=== PATIENT | male | born 1970 | race Caucasian/White ===

== ENCOUNTER 2021-09-12 12:08 | Emergency (ER) | payer BC, OTHER, SELFPAY ==
--- NOTE | ~2021-09-12 | XR_ITS ---
XR hand RT min 3V DATE: 09/12/2021 13:03 INDICATION: Dog bite 4 days ago. Right thumb pain. TECHNIQUE: 3 views COMPARISON: None FINDINGS: No fracture, dislocation, periosteal reaction or bone destruction, radiopaque foreign body or subcutaneous emphysema is noted. Joint spaces are preserved. No erosive change. IMPRESSION: No significant abnormality Reviewed, dictated and finalized at location A. IMPRESSION: No significant abnormality
[2021-09-12 12:10] VITALS: BP 118/67; PULSE 105; RESP 17; TEMP 36.7; O2SAT 99
--- NOTE | 2021-09-12 12:55 | ED.GENADULT ---
HPI - General Adult General Chief complaint: Unspecified Stated complaint: feeling rough Time Seen by Provider: 09/12/21 12:23 History of Present Illness HPI narrative: 51 year old male patient presents to the ER for evaluation of a dogbite to the right thumb. Patient states he was bitten approx. 3 days ago by a known dog who is UTD with its vaccines. States he woke this am with generalized body aches. States thumb is more painful and swollen. Denies any purulent drainage from the wound site. Related Data Allergies Allergy/AdvReac Type Severity Reaction Status Date / Time Penicillins Allergy Anaphylaxis Verified 09/12/21 12:13 sulfamethoxazole Allergy Hives Verified 09/12/21 12:13 [From Bactrim] trimethoprim [From Bactrim] Allergy Hives Verified 09/12/21 12:13 Review of Systems Review of Systems: CONSTITUTIONAL: Reports body aches EYES: Denies visual changes, redness, or discharge. ENT: Denies rhinorrhea, congestion, sore throat, or otalgia. CARDIOVASCULAR: Denies chest pain, palpitations, or edema. RESPIRATORY: Denies cough or dyspnea. GASTROINTESTINAL: Denies abdominal pain, nausea, vomiting, or diarrhea. GENITOURINARY: Denies dysuria or hematuria. SKIN: Reports pain to the right thumb MUSCULOSKELETAL: Denies back pain, joint pain, or myalgia. NEUROLOGIC: Denies headache, numbness, dizziness, or weakness. PSYCHIATRIC: Denies anxiety or depression. Exam Narrative: GENERAL: Well-appearing, well-nourished, and in no acute distress. HEAD: Normocephalic, atraumatic. EYES: PERRLA and EOMI. ENT: Nares clear, no rhinorrhea or epistaxis. Mucous membranes moist. Oropharynx without tonsillar hypertrophy exudate or other lesions. Bilateral TMs pearly ohara nonbulging NECK: Supple. No adenopathy or masses. No carotid bruits or JVD CHEST: Clear to auscultation. No respiratory distress. No wheezes rales or rhonchi HEART: Regular rate and rhythm. No murmur heard. Normal peripheral pulses. ABDOMEN: Soft, nontender, nondistended, normal active bowel sounds. EXTREMITIES: Right thumb: Puncture wounds noted to the dorsal and palmar surfaces of the base of the thumb; swelling and warmth noted SKIN: Warm, dry, no rash. NEURO: No focal deficits. Alert and oriented x3. PSYCH: Normal mood and affect. Course Vital Signs Vital signs: Vital Signs Temperature 36.7 C 09/12/21 12:10 Pulse Rate 105 H 09/12/21 12:10 Respiratory Rate 17 09/12/21 12:10 Blood Pressure 118/67 09/12/21 12:10 Pulse Oximetry 99 09/12/21 12:10 Temperature 36.7 C 09/12/21 12:10 Pulse Rate 105 H 09/12/21 12:10 Respiratory Rate 17 09/12/21 12:10 Blood Pressure 118/67 09/12/21 12:10 Pulse Oximetry 99 09/12/21 12:10 Medical Decision Making Vital Signs Vital Signs: Vital Signs Temperature 36.7 C 09/12/21 12:10 Pulse Rate 105 H 09/12/21 12:10 Respiratory Rate 17 09/12/21 12:10 Blood Pressure 118/67 09/12/21 12:10 Pulse Oximetry 99 09/12/21 12:10 Temperature 36.7 C 09/12/21 12:10 Pulse Rate 105 H 09/12/21 12:10 Respiratory Rate 17 09/12/21 12:10 Blood Pressure 118/67 09/12/21 12:10 Pulse Oximetry 99 09/12/21 12:10 Lab Data Result diagrams: 09/12/21 12:59 09/12/21 12:59 Labs: Lab Results 09/12/21 09/12/21 Range/Units 12:59 12:59 WBC 11.8 H (4.5-10.0) K/mm3 RBC 4.47 L (4.6-6.20) M/mm3 Hgb 14.3 (14.0-18.0) g/dL Hct 42.6 (42.0-52.0) % MCV 95.3 (80-100) fl MCH 32.0 (26-34) pg MCHC 33.6 (32-36) g/dl RDW 13.0 (11.5-14.5) % Plt Count 233 (150-375) k/mm3 MPV 9.3 (7.4-10.4) fl Immature Gran % (Auto) 0.3 (0-0.5) % Neut % (Auto) 91.3 H (45.5-73.1) % Lymph % (Auto) 1.7 L (18.3-44.2) % [place] % (Auto) 3.8 (2.6-8.5) % Eos % (Auto) 2.7 (0-4.4) % Baso % (Auto) 0.2 (0.2-1.2) % Lymph # (Auto) 0.20 L (0.9-3.2) K/mm3 [place] # (Auto) 0.5 (0.1-0.6) K/mm3 Eos # (Auto) 0.3 (0-0.3) K/mm3 Baso # (Aut
[2021-09-12 13:03] LABS: Basophils Percent Auto 0.2 % (0.2-1.2); Eosinophils Absolute Auto 0.3 K/mm3 (0-0.3); Eosinophils Percent Auto 2.7 % (0-4.4); Hematocrit 42.6 % (42.0-52.0); Hemoglobin 14.3 g/dL (14.0-18.0); Immature Granulocyte Absolute 0.04 K/mm3 (0.00-0.031); Immature Granulocyte Percent A 0.3 % (0-0.5); Lymphocytes Percent Auto 1.7 % (18.3-44.2); Mean Corpuscular HGB Conc 33.6 g/dl (32-36); Mean Corpuscular Volume 95.3 fl (80-100); Mean Platelet Volume 9.3 fl (7.4-10.4); Monocytes Absolute Auto 0.5 K/mm3 (0.1-0.6); Monocytes Percent Auto 3.8 % (2.6-8.5); Neutrophils Absolute Auto 10.7 K/mm3 (1.3-6.7); Neutrophils Percent Auto 91.3 % (45.5-73.1); Platelet Count Result 233 k/mm3 (150-375); Red Blood Count 4.47 M/mm3 (4.6-6.20); White Blood Count 11.8 K/mm3 (4.5-10.0)
[2021-09-12 13:14] LABS: Alanine Aminotransferase 15 U/L (6-50); Alkaline Phosphatase 52 U/L (38-126); Anion Gap 4 mmol/L (8-16); Aspartate Amino Transferase 23 U/L (17-59); Bilirubin,Total 0.7 mg/dL (0.2-1.3); Blood Urea Nitrogen 16 mg/dL (9-20); Calcium 8.7 mg/dL (8.4-10.2); Carbon Dioxide 27 mmol/L (22-30); Chloride 108 mmol/L (98-107); Estimated CRCL calculation 70 ml/min; Estimated Glomerular Filt Rate 58; Glucose 89 mg/dL (65-110); Potassium 4.2 mmol/L (3.4-5.0); Sodium 139 mmol/L (137-145)
[2021-09-12] MEDS: KETOROLAC 30 MG/ML VIAL (*BKC) IV PUSH (13:36)
[2021-09-12] MEDS: SODIUM CHLORIDE 0.9% IV 1,000 ML 999 ML IV CONT (13:36)
[2021-09-12] MEDS: TETANUS,DIPHTHERIA,AC PERTUSSIS ADULT (0.5 ML) BOOSTRIX IM (13:36)
[2021-09-12] MEDS: CLINDAMYCIN 600 MG/D5W 50 ML 600 MG/50 ML PIGGYBACK 100 MG IVPB (14:16)
== END 2021-09-12 15:05 | disposition home or self-care (01) ==
PROVIDERS: Emergency Provider Nurse Practitioner Family; PCP Family Medicine
DX: S61.051A Open bite of right thumb without damage to nail, initial encounter (principal); Z23 Encounter for immunization; W54.0XXA Bitten by dog, initial encounter
CPT/HCPCS: 36415; 73130; 80053; 85025; 90471; 90715; 96361; 96365; 96375; 99284; J1885; J7030